=== PATIENT | male | born 2000 | race Caucasian/White ===

== ENCOUNTER 2018-09-02 10:09 | Emergency (ER) | payer OTHER ==
[2018-09-02] MEDS ORDERED: NS 1,000 ML IV ONE (10:42)
--- NOTE | 2018-09-02 10:46 | EDPHY ---
H & P Stated Complaint: ST/ FEVER RASH - Personal History Current Tetanus Diphtheria and Acellular Pertussis (TDAP): Unsure - Medical/Surgical History Hx Asthma: No Hx Chronic Respiratory Disease: No Hx Diabetes: No Hx Cardiac Disease: No Hx Renal Disease: No Hx Cirrhosis: No Hx Alcoholism: No Hx HIV/AIDS: No Hx Splenectomy or Spleen Trauma: No Other PMH: DENIES - Social History Smoking Status: Current some day smoker Time Seen by Provider: 09/02/18 10:29 HPI/ROS: CHIEF COMPLAINT: Sore throat, rash HISTORY OF PRESENT ILLNESS: 18-year-old immunocompetent male with self- reported up-to-date vaccinations including MMR as a child, awoke yesterday with rash which started on his arms and knees primarily on the extensor surfaces with development last night of sore throat. He notes tonsillar exudate with no other intraoral lesions. Denies coryza. Denies conjunctivitis symptoms. Denies urethritis symptoms. Denies new sexual contacts. Denies tick bites. Denies known STD history. PRIMARY CARE PROVIDER: Louie REVIEW OF SYSTEMS: 10 systems reviewed and negative with the exception of the elements mentioned in the history of present illness PAST MEDICAL & SURGICAL HISTORY: No pertinent medical or surgical history SOCIAL HISTORY: Nonsmoker. Student. PHYSICAL EXAM (Prior to examination, patient consented to physical exam, hands were washed and my usual and customary physical exam procedures followed) 1) GENERAL: Well-developed, well-nourished, alert and oriented. Appears to be in no acute distress. 2) HEAD: Normocephalic, atraumatic 3) HEENT: Pupils equal, round, reactive to light bilaterally. Sclera anicteric. Nasopharynx, oropharynx, clear, no lesions. Moist Mucous membranes. Bilateral tonsils are symmetrically enlarged with white exudate. No trismus no drooling. No hot potato voice. No asymmetry. No pointing of the uvula. Specific attention paid to the l mucous membranes and no lesions or Koplik spots are identified. Ears bilaterally with normal tympanic membranes. No evidence of otitis media otitis externa. 4) NECK: Full range of motion, no meningeal signs. Positive cervical adenopathy. 5) LUNGS: Clear auscultation bilaterally, no wheezes, no rhonchi, no retractions. 6) HEART: Regular rate and rhythm, no murmur, no heave, no gallop. 7) ABDOMEN: No guarding, no rebound, no focal tenderness, negative McBurney's, negative Doe's, negative Rovsing's, negative peritoneal sign, 8) MUSCULOSKELETAL: Moving all extremities, no focal areas of tenderness, no obvious trauma. No peripheral edema or discoloration. 9) BACK: No CVA tenderness, no midline vertebral tenderness, no fluctuance, no step-off, no obvious trauma, no visual or palpable abnormality. 10) SKIN: Patient has a maculopapular rash with some areas of coalescing primarily on the extensor surfaces of his knees and elbows. There is significant involvement of the medial proximal thigh area with significant tenderness and no blistering. There is no involvement of the perineum or the scrotum or the penis. On the trunk face and neck there is minimally appreciable rash. 11) Psychiatric: Patient is oriented X 3, there is no agitation. DIFFERENTIAL DIAGNOSIS: In no particular order including but not limited to mononucleosis, strep pharyngitis, measles , syphillis, tickborne illness (Lex,Meenu Tabatha) Constitutional: Initial Vital Signs Temperature (C) 36.8 C 09/02/18 10:11 Heart Rate 60 09/02/18 10:11 Respiratory Rate 18 09/02/18 10:11 Blood Pressure 160/92 H 09/02/18 10:11 O2 Sat (%) 97 09/02/18 10:11 O2 Delivery Mode Room Air Allergies/Adverse Reactions: No Known Allergies Allergy (Unverified 09/02/18 10:10) Home Medications: Medication Instructions Recorded Amoxicillin/Clavulanate Pot 875 mg PO BID #14 tab 09/02/18 [Augmentin 875 mg tab] Benadryl 09/02/18 diphenhydrAMINE [Benadryl 25 MG 25 mg PO Q6 #15 tab 09/02/18 (*)] methylPREDNISolone [Medrol Dose 4 mg PO DAILY #1 ea 09/02/18 Ad[place]so] Medical Decision Making ED Course/Re-evaluation: 10:45 a.m.: At this time doubt measles as he is immunocompetent with up-to- date vaccinations, has no Koplik's spots, he has a rash which started primarily on the extensor surfaces of elbow and knees and allergy expect a more cephalo- caudal developing rash in the case of measles. However this has been considered in the differential diagnosis. At this time will obtain laboratory studies including mononucleosis and strep testing. Care of patient under supervision of secondary supervising physician Dr Jo Cedeno with whom I discussed case who also evaluated the patient 11:49 a.m.: Patient was re-evaluated. Discussed his laboratory studies. Negative mono testing, negative strep testing. High clinical suspicion for strep pharyngitis home. Recommended empiric treatment with Augmentin as well as Medrol Dosepak and Benadryl. Regarding his rash, doubt Marinelli-Tim, doubt toxic epidermal necrolysis, doubt Royce's gangrene, doubt measles. Recommend close follow up with ENT. Patient feels comfortable being discharged. All questions and concerns addressed by myself. Patient given my usual and customary discharge precautions and instructions regarding their clinical impression. (Meenu Burnett) noon: this pt was seen and examined by me. Fully vaccinated college student who presents with fever, ST and rash. On exam, he is well-appearing, macular rash present on extremities, confluent and blanching over the medial aspects of the knees/thighs and extensor surface of elbows. Palms and soles are not involved. OP-pharyngeal erythema and exudate, no intraoral rash. Labs reviewed, likely viral etiology. No evidence of serious etiology such as SJS or TEN. I feel that he is safe/stable for d/c home. Rx: Augmentin (Jo Cedeno) - Data Points Laboratory Results: Laboratory Results 09/02/18 11:01 09/02/18 11:01 09/02/18 09/02/18 09/02/18 Unknown 11:01 11:01 WBC RBC Hgb Hct MCV MCH MCHC RDW Plt Count MPV Neut % (Auto) Lymph % (Auto) [place] % (Auto) Eos % (Auto) Baso % (Auto) Nucleat RBC Rel Count Absolute Neuts (auto) Absolute Lymphs (auto) Absolute Monos (auto) Absolute Eos (auto) Absolute Basos (auto) Absolute Nucleated RBC Immature Gran % Immature Gran # Sodium 137 mEq/L mEq/L (135-145) Potassium 4.4 mEq/L mEq/L (3.5-5.2) Chloride 105 mEq/L mEq/L (97-110) Carbon Dioxide 19 mEq/l L mEq/l (22-31) Anion Gap 13 mEq/L mEq/L (6-14) BUN 12 mg/dL mg/dL (7-23) Creatinine 0.9 mg/dL mg/dL (0.7-1.3) Estimated GFR > 60 Glucose 91 mg/dL mg/dL (70-100) Calcium 9.5 mg/dL mg/dL (8.5-10.4) Monoscreen NEGATIVE (NEGATIVE) Group A Strep Screen Group A Strep DNA Pending 09/02/18 09/02/18 11:01 10:55 WBC 14.20 10^3/uL H 10^3/uL (3.80-9.50) RBC 5.37 10^6/uL 10^6/uL (4.40-6.38) Hgb 17.4 g/dL g/dL (13.7-17.5) Hct 49.2 % % (40.0-51.0) MCV 91.6 fL fL (81.5-99.8) MCH 32.4 pg pg (27.9-34.1) MCHC 35.4 g/dL g/dL (32.4-36.7) RDW 12.2 % % (11.5-15.2) Plt Count 218 10^3/uL 10^3/uL (150-400) MPV 9.5 fL fL (8.7-11.7) Neut % (Auto) 81.3 % H % (39.3-74.2) Lymph % (Auto) 9.3 % L % (15.0-45.0) [place] % (Auto) 7.8 % % (4.5-13.0) Eos % (Auto) 1.0 % % (0.6-7.6) Baso % (Auto) 0.3 % % (0.3-1.7) Nucleat RBC Rel Count 0.0 % % (0.0-0.2) Absolute Neuts (auto) 11.55 10^3/uL H 10^3/uL (1.70-6.50) Absolute Lymphs (auto) 1.32 10^3/uL 10^3/uL (1.00-3.00) Absolute Monos (auto) 1.11 10^3/uL H 10^3/uL (0.30-0.80) Absolute Eos (auto) 0.14 10^3/uL 10^3/uL (0.03-0.40) Absolute Basos (auto) 0.04 10^3/uL 10^3/uL (0.02-0.10) Absolute Nucleated RBC 0.00 10^3/uL 10^3/uL (0-0.01) Immature Gran % 0.3 % % (0.0-1.1) Immature Gran # 0.04 10^3/uL 10^3/uL (0.00-0.10) Sodium Potassium Chloride Carbon Dioxide Anion Gap BUN Creatinine Estimated GFR Glucose Calcium Monoscreen Group A Strep Screen NEGATIVE (NEGATIVE) Group A Strep DNA Medications Given: Discontinued Medications Dexamethasone (Decadron Injection) 10 mg IVP EDNOW ONE Stop: 09/02/18 11:13 Last Admin: 09/02/18 11:17 Dose: 10 mg Sodium Chloride (Ns) 1,000 mls @ 0 mls/hr IV ONCE ONE PRN Reason: Wide Open Stop: 09/02/18 10:43 Last Admin: 09/02/18 11:10 Dose: 1,000 mls Departure - Departure Disposition: Home, Routine, Self-Care Clinical Impression: Acute streptococcal pharyngitis, Rash Condition: Good Instructions: Strep Throat (ED), Acute Rash (ED) Additional Instructions: Return to the ER immediately if you cannot swallow, have drooling, fevers, neck stiffness, if you have worsening rash, if you have rash on your scrotum or penis , if you develop lesions or tenderness inside your mouth, cannot open your jaw, or any other symptoms that concern you. Referrals: Godwin Reyes MD [Medical Doctor] - 1-2 days without fail Stand Alone Forms: School Excuse Prescriptions: Amoxicillin/Clavulanate Pot [Augmentin 875 mg tab] 875 mg PO BID #14 tab diphenhydrAMINE [Benadryl 25 MG (*)] 25 mg PO Q6 #15 tab methylPREDNISolone [Medrol Dose Adelso] 4 mg PO DAILY #1 ea
[2018-09-02 11:10] LABS: PLATELET COUNT 218 10^3/uL (150-400)
[2018-09-02] MEDS ORDERED: DEXAMETHASONE 10 MG/ML VIAL IVP ONE (11:12)
[2018-09-02 12:23] VITALS: BP 134/76
== END 2018-09-02 12:25 | disposition home or self-care (01) ==
DX: J02.0 Streptococcal pharyngitis (principal); R21 Rash and other nonspecific skin eruption
CPT/HCPCS: 96374; J1100